=== PATIENT | female | born 1950 | race Caucasian/White ===

== ENCOUNTER → 2017-07-24 | Outpatient (CLI) | payer MEDICARE, BC ==
[~2017-07-24] MED LIST: CYAN50008 PO; MULT-224 PO; POTA99TA3 PO
== END | disposition home or self-care (01) ==
LOC: STAR 10:41
PROVIDERS: ATTEND Surgery
DX: Z01.818 Encounter for other preprocedural examination (principal)
CPT/HCPCS: 93005

== ENCOUNTER 2017-08-06 07:13 | Day surgery (SDC) | payer MEDICARE, BC ==
[~2017-08-06] VITALS: Ht 167.6 cm; Wt 50.6 kg
[~2017-08-06 07:13] MED LIST changes: +BUPIVACAINE/PF 0.25% ONE
[2017-08-06] MEDS ORDERED: LACTATED RINGERS 1,000 ML IV SCH (07:46)
[2017-08-06 08:10] VITALS: BP 146/79
[2017-08-06] MEDS ORDERED: FENTANYL PF 100 MCG/2ML ONE (09:23)
[2017-08-06] MEDS ORDERED: MIDAZOLAM 1 MG/ML, 2ML ONE (09:23)
[2017-08-06] MEDS ORDERED: SUCCINYLCHOLINE 20 MG/ML, 10ML ONE (09:51)
[2017-08-06] MEDS ORDERED: KETOROLAC 30 MG/1 ML ONE (10:09)
[2017-08-06] MEDS ORDERED: PROPOFOL 10 MG/ML, 20ML ONE (10:09)
[2017-08-06] MEDS ORDERED: DEXAMETHASONE 4 MG/ML, 1ML ONE (10:09)
[2017-08-06] MEDS ORDERED: ONDANSETRON 2MG/ML, 2ML ONE (10:09)
[2017-08-06] MEDS ORDERED: CEFAZOLIN 1,000 MG ONE (10:09)
[2017-08-06] MEDS ORDERED: EPINEPHRINE 1 MG/ML, 1ML INFIL ONE (10:17)
[2017-08-06] MEDS ORDERED: FENTANYL PF 100 MCG/2ML IV PRN (10:30)
[2017-08-06] MEDS ORDERED: PROMETHAZINE 12.5 MG SUPP PR PRN (10:30)
[2017-08-06] MEDS ORDERED: LABETALOL 5MG/ML, 20ML IV PRN (10:30)
[2017-08-06] MEDS ORDERED: MIDAZOLAM 1 MG/ML, 2ML IV PRN (10:30)
[2017-08-06] MEDS ORDERED: PROMETHAZINE 25 MG/ML, 1ML IV PRN (10:30)
[2017-08-06] MEDS ORDERED: DIAZEPAM 5 MG/ML, 2ML IVPush PRN (10:30)
[2017-08-06] MEDS ORDERED: ACETAMINOPHEN 325 MG TABLET PO PRN (10:30)
[2017-08-06] MEDS ORDERED: ONDANSETRON 2MG/ML, 2ML IVPush PRN (10:30)
[2017-08-06] MEDS ORDERED: ALBUTEROL/IPRATROPIUM 2.5MG/0.5MG, 3 ML NPPB PRN (10:30)
[2017-08-06] MEDS ORDERED: hydrALAzine 20 MG/ML, 1ML IV PRN (10:30)
[2017-08-06] MEDS ORDERED: OXYcodone 5 MG/5 ML ORAL.SOL UDC PO PRN (10:30)
[2017-08-06] MEDS ORDERED: METOCLOPRAMIDE 5 MG/ML, 2ML IV PRN (10:30)
[2017-08-06] MEDS ORDERED: MEPERIDINE/PF 25MG/0.5ML IVPush PRN (10:30)
[2017-08-06] MEDS ORDERED: morphine SULFATE 10 MG/ML, 1ML IV PRN (10:30)
[2017-08-06] MEDS ORDERED: ACETAMINOPHEN 650 MG/20.3 ML UDC ONE (11:09)
[2017-08-06] MEDS ORDERED: OXYcodone 5 MG/5 ML ORAL.SOL UDC ONE (11:09)
== END 2017-08-06 12:40 ==
LOC: OUT 07:13
PROVIDERS: ATTEND Surgery
DX: D17.0 Benign lipomatous neoplasm of skin and subcutaneous tissue of head, face and neck (principal); Z90.710 Acquired absence of both cervix and uterus; Z72.89 Other problems related to lifestyle
CPT/HCPCS: 23140; 88305; 88331; 88333; J0171; J0330; J0690; J1100; J1885; J2250; J2405; J2704; J3010; J3490; J7120